=== PATIENT | male | born 1950 | race Hispanic/Latino ===

== ENCOUNTER → 2017-03-24 | Outpatient (CLI) | payer MEDICARE, MEDICAID ==
--- NOTE | 2017-03-24 16:38 | Diagnostic Imaging Report ---
PROCEDURE: US Carotid Duplex Bilateral. TECHNIQUE: Multiple real-time grayscale images were obtained over the carotid arteries in various projections bilaterally. Additional duplex Doppler and color Doppler images were also obtained. INDICATION: History of stroke. FINDINGS: Grayscale images demonstrate minimal plaque along the carotid arteries. Color Doppler demonstrates patency of the common, internal, and external carotid arteries on both sides. There is antegrade flow seen in the vertebral arteries bilaterally. The peak systolic velocities in the right ICA are 37, 36, and 58 cm/s and, on the left, are 58, 78, and 83 cm/s. The ICA/CCA ratio is up to 0.5 on the right and on the left up to 0.8. IMPRESSION: The estimated underlying stenosis is in the range of 0-40% bilaterally. Dictated by: Dictated on workstation # [id number]
== END ==
LOC: RAD 14:46
PROVIDERS: ATTEND Internal Medicine Cardiovascular Disease
DX: I65.23 Occlusion and stenosis of bilateral carotid arteries (principal); I25.10 Atherosclerotic heart disease of native coronary artery without angina pectoris
CPT/HCPCS: 93880

== ENCOUNTER 2021-01-10 09:33 | Outpatient (RCR) | payer MEDICARE, MEDICAID | END 2021-04-10 | disposition home or self-care (01) | LOC: CARD 09:33 | PROVIDERS: ATTEND Internal Medicine Cardiovascular Disease | DX: R00.2 Palpitations (principal); I63.9 Cerebral infarction, unspecified; E78.5 Hyperlipidemia, unspecified; E11.9 Type 2 diabetes mellitus without complications | CPT/HCPCS: 93225; 93226; 93306 ==

== ENCOUNTER → 2021-09-08 | Outpatient (CLI) | payer MEDICARE, MEDICAID | END | disposition home or self-care (01) | LOC: PREOP 05:46 | PROVIDERS: ATTEND Surgery | DX: Z01.818 Encounter for other preprocedural examination (principal) ==

== ENCOUNTER → 2021-09-16 | Outpatient (CLI) | payer MEDICARE, MEDICAID ==
--- NOTE | 2021-09-16 13:15 | Diagnostic Imaging Report ---
INDICATION: 70-year-old male with osteoporosis. COMPARISON: None. FINDINGS: AP Spine L1-L4: [BMD (g/cm2): 0.957] [T-Score: -2.4] [Z-Score: -2.0] [BMD Previous: NA] [BMD % Change: NA] LT Hip Neck: [BMD (g/cm2): 0.807] [T-Score: -2.0] [Z-Score: -1.0] LT Hip Total: [BMD (g/cm2):0.818] [T-Score:-2.0] [Z-Score: -1.4] [BMD Previous: NA] [BMD % Change: NA] RT Hip Neck: [BMD (g/cm2):0.746] [T-Score:-2.5] [Z-Score:-1.4] RT Hip Total: [BMD (g/cm2):0.847] [T-score:-1.8] [Z-Score:-1.2] [BMD Previous:NA] [BMD % Change:NA] World Health Organization criteria for BMD interpretation classify patients as Normal (T-score at or above -1.0), Osteopenic (T-score between -1.0 and -2.5) or Osteoporotic (T-score at or below -2.5). LIMITATIONS AND MODIFICATION: None. IMPRESSION: 1. Osteoporosis. 2. Baseline examination. 3. See below National Osteoporosis Foundation guidelines on when to potentially initiate pharmacologic therapy. Based on the National Osteoporosis Foundation Guidelines, pharmacologic treatment should be initiated in any of the following, unless clinical conditions suggest otherwise: * Any patient with prior fragility fracture of the hip or vertebrae. A spine fracture indicates 5X risk for subsequent spine fracture and 2X risk for subsequent hip fracture. * Osteoporosis (T-score <-2.5). * Postmenopausal women and men age 50 and older with low bone mass/osteopenia (T-score between -1.0 and -2.5) by DXA and 10-year major osteoporotic fracture greater than 20% or a 10-year probability of hip fracture greater than 3%. These fracture risks are supplied above in the FRAX score, if applicable. * Clinician judgement and/or patient preferences may indicate treatment for people with 10-year fracture probabilities above or below these levels. Dictated by: Dictated on workstation # [id number]
== END ==
LOC: RAD 10:07
PROVIDERS: ATTEND Family Medicine
DX: M81.0 Age-related osteoporosis without current pathological fracture (principal)
CPT/HCPCS: 77080

== ENCOUNTER → 2022-11-25 | Outpatient (CLI) | payer MEDICARE, MEDICAID ==
[~2022-11-25] MED LIST: CATHETER FLUSH 10 ML SYR IVP PRN; REGADENOSON 0.4 MG/5 ML SYR (LEXISCAN) IV ONE
[2022-11-25 08:54] VITALS: BP 126/79
[2022-11-25 09:05] VITALS: BP 105/69
--- NOTE | 2022-11-25 11:47 | Cardiology Stress Test Report ---
Stress Test Report Date of Procedure/Referring: Date of Procedure: Nov 25, 2022 PCP Ellie Larose DO Admitting Physician Admitting Physician: Attending Physician: Ron Moreau MD Baseline Heart Rate: 62 Baseline Blood Pressure: Blood Pressure Systolic: 105 Blood Pressure Diastolic: 69 Baseline Vitals Vital Signs Date Time Temp Pulse Resp B/P (MAP) Pulse Ox O2 Delivery O2 Flow Rate FiO2 11/25/22 08:54 62 126/79 (95) 97 Room Air Baseline EKG: Baseline EKG: NSR Summary After explaining the procedure to the patient, he signed a consent and then brought to the stress nuclear laboratory. Patient received 0.4 mg Lexiscan for stress test, ECG, heart rate and blood pressure were monitored continuously. Resting and stress dose of radio tracer were injected, imaging was acquired and reviewed in short axis, horizontal long axis and vertical long axis views. TID: 1.09 SSS: 6 SDS: 5 EF: 85 1. Patient tolerated Lexiscan well 2. Extracardiac attenuation with the left arm down during acquisition of the imaging. There is a reversible ischemia involving the apex, inferoapical and inferolateral wall. 3. Normal left ventricular size, ejection fraction 85% Copy Copies To 1: [facility] [place] RON MOREAU MD Nov 25, 2022 11:47
== END ==
LOC: CARD 07:30
PROVIDERS: ATTEND Internal Medicine Cardiovascular Disease
DX: R07.2 Precordial pain (principal)
CPT/HCPCS: 78452; 93017; A9502; C8929; 93306

== ENCOUNTER 2023-01-13 06:57 | Day surgery (SDC) | payer MEDICARE, MEDICAID ==
[2023-01-13] VITALS (10 sets, daily range): BP systolic 96–150; BP diastolic 66–97
[~2023-01-13] VITALS: Ht 172.7 cm; Wt 83.1 kg
[2023-01-13] MEDS ORDERED: NS IV 1000 ML 1,000 ML IV SCH ×2 (07:00→09:30)
[2023-01-13] MEDS ORDERED: HEParin (CATH LAB) 2,000 ML IV ONE (07:02)
[2023-01-13] MEDS ORDERED: NS IV 1000 ML 1,000 ML ONE (07:02)
[2023-01-13] MEDS ORDERED: LIDOCAINE 1% INJ 20 ML VIAL ONE (07:02)
[2023-01-13 07:34] LABS: HEMATOCRIT 45 % (40-54); HEMOGLOBIN 15.1 g/dL (13.3-17.7); MEAN CORPUSCULAR HEMOGLOBIN 28 pg (25-34); MEAN CORPUSCULAR HGB CONC 34 g/dL (32-36); MEAN CORPUSCULAR VOLUME 83 fL (80-99); PLATELET COUNT 374 10^3/uL (130-400); WHITE BLOOD COUNT 6.8 10^3/uL (4.3-11.0)
[2023-01-13] MEDS ORDERED: VERAPAMIL 5 MG/2 ML (CALAN) VIAL IV ONE (07:46)
[2023-01-13] MEDS ORDERED: MIDAZOLAM 5 MG/5 ML (VERSED) VIAL ONE (07:47)
[2023-01-13] MEDS ORDERED: fentaNYL INJ 100 MCG/2 ML AMP ONE (07:47)
[2023-01-13] MEDS ORDERED: HEParin 1000 UNIT/ML (10ML VIAL) FOR BOLUS ONE (07:47)
[2023-01-13] MEDS ORDERED: NITRO DRIP 25000 MCG/D5W 250 ML IV ONE (07:47)
[2023-01-13 07:56] LABS: INR 0.9 (0.8-1.4); PROTHROMBIN TIME PATIENT 12.2 SEC (12.2-14.7)
[2023-01-13] MEDS ORDERED: POTA-177 PO (08:12)
[2023-01-13] MEDS ORDERED: CLOP75TA28 PO (08:12)
[2023-01-13] MEDS ORDERED: METF-399 PO ×2 (08:12→09:23)
[2023-01-13] MEDS ORDERED: TMSL.4C PO (08:12)
[2023-01-13] MEDS ORDERED: DICL75TA2 PO (08:12)
[2023-01-13] MEDS ORDERED: DULO30CA49 PO (08:12)
[2023-01-13] MEDS ORDERED: ATOR10TA66 PO (08:12)
[2023-01-13] MEDS ORDERED: GABA300C PO (08:12)
[2023-01-13] MEDS ORDERED: ASPI-1238 PO (08:12)
--- NOTE | 2023-01-13 08:13 | Diagnostic Imaging Report ---
EXAMINATION: Chest 1 view HISTORY: ABN STRESS TEST COMPARISON: None available. FINDINGS: Heart size is upper limits of normal. There are low lung volumes without consolidation, pleural effusion, or pneumothorax. Degenerative changes of the thoracic spine. Osseous structures are otherwise intact. IMPRESSION: 1. No acute radiographic abnormality in the chest. Dictated by: Dictated on workstation # [id number]
[2023-01-13] MEDS ORDERED: GBPN600T PO (08:22)
--- NOTE | 2023-01-13 08:47 | Cardiac Procedure Note-CS/ASA ---
Pre-Procedure Note Pre-Op Procedure Note Date of Available H&P: Jan 13, 2023 Date H&P Reviewed: Jan 13, 2023 Time H&P Reviewed: 08:46 History & Physical: H&P Reviewed, Patient Examed, No changes noted Pre-Operative Diagnosis: CAD Conscious Sedation Pre-Proced Time 08:46 ASA Score 3 For ASA 3 and 4: Consider anesthesia and medical clearance. Also, for patients with a history of failed moderate sedation consider anesthesia. Airway Lungs Heart ASA score ASA 1: a normal healthy patient ASA 2: a patient with a mild systemic disease (mid diabetes, controlled hypertension, obesity ASA 3: a patient with a severe systemic disease that limits activity (angina, COPD, prior Myocardial infarction) ASA 4: a patient with an incapacitating disease that is a constant threat to life (CHF, renal failure) ASA 5: a moribund patient not expected to survive 24 hrs. (ruptured aneurysm) ASA 6: a declared brain- patient whose organs are being harvested. For emergent operations, add the letter E after the classification Mallampati Classification Grade 3 Sedation Plan Analgesia, Amnesia, Plan communicated to team members, Discussed options with patient/fam, Discussed risks with patient/fam The patient is an appropriate candidate to undergo the planned procedure, sedation, and anesthesia. The patient immediately re-assessed prior to indication. RON ROCHA MD Jan 13, 2023 08:47
[2023-01-13 09:08] LABS: ALBUMIN 4.1 GM/DL (3.2-4.5); BILIRUBIN,TOTAL 0.3 MG/DL (0.1-1.0); CALCIUM 9.8 MG/DL (8.5-10.1); CREATININE SERUM 0.75 MG/DL (0.60-1.30); POTASSIUM 3.7 MMOL/L (3.6-5.0); TOTAL PROTEIN 7.6 GM/DL (6.4-8.2)
--- NOTE | 2023-01-13 09:23 | Discharge Inst-Post CATH ---
Discharge Inst-CATH/EP Problems Reviewed?: Yes Post Cardiac Cath/EP D/C Inst Follow Up/Plan Hold metformin for [address] Moreau's office in 2 to 4 weeks <b>CARDIAC CATH/EP PROCEDURE DISCHARGE INSTRUCTIONS</b> ACTIVITY * Go Home directly and rest. * Limit activity of the leg (or wrist if it was used) for 7 days including aerobics, swimming, jogging, bicycling, etc. * Restrict stair-climbing for 7 days if possible, if not, climb up with your non-cath leg, then bring together on the same step. * Avoid lifting, pushing, pulling or excessive movement of the affected extremity for 7 days. * Customary sexual activity may be resumed after 2 days-use caution not to use a position that strains or causes pain to the affected extremity. * No driving for 24 hours. * NO SMOKING. * Avoid straining for bowel movements for 7 days. * Gentle walking on level ground is allowed. * Returning to work will depend on the type of procedure and the results. Your doctor will discuss this with you. CALL YOUR DOCTOR FOR ANY OF THE FOLLOWING: *If bleeding from the puncture site occurs- Apply gentle pressure to site with clean cloth and call your doctor or EMS. * If a knot or lump forms under the skin, increases in size, or causes pain. * If bruising appears to be worsening or moving further down your leg instead of disappearing. * Temperature above 101 F. CARE OF YOUR GROIN INCISION; * Bruising or purple discoloration of the skin near the puncture site is common. * You may shower only, no bathtub bathing for 5 days. Be careful to avoid slipping as your leg may feel stiff. * If a closure device was used on your femoral artery, please see the attached guide regarding care of the device and your leg. * Leave dressing on FOR 24 hours. CARE OF YOUR WRIST INCISION; * Bruising or purple discoloration of the skin near the puncture site is common. * You may shower. * DO NOT submerge wrist. * Leave dressing on FOR 24 hours. RON MOREAU MD Jan 13, 2023 09:23
--- NOTE | 2023-01-13 09:27 | Cardiac Cath Report ---
Cardiac Cath Report Physician (s)/Air Tube Releaser (s) Physician RON ROCHA MD Pre-Procedure Diagnosis Pre-Procedure Diagnosis: CAD Post-Procedure Note Procedure Start Date: Jan 13, 2023 Name of Procedure: Coronary angiogram Aortic arch angiogram Findings/Procedure Note PROCEDURE NOTE: 72 years old gentleman with history of coronary artery disease, diabetes mellitus, hypertension hyperlipidemia, had an abnormal stress test, scheduled for cardiac catheterization possible PTCA. After explaining the procedure to the patient, all pros and cons were explained, all questions were answered. The patient signed the consent and then he was placed in the cardiac catheterization laboratory. Groin was prepped in SL fashion local anesthesia was used. Sheath placed in the right radial artery, [place] catheter was used, I had significant difficulty in reaching the aortic arch due to the tortuosity and calcification in the aortic arch. I was unable to cross the aortic valve. Engaged the right and left coronary system, angiogram was done then I exchanged the catheter and used Ya right catheter and engaged the right coronary artery did angiogram again then I pulled the catheter back to the aortic arch and evaluated aortic arch angiogram. At the end of the procedure the sheath was removed. Vascular band was used FINDINGS: Hemodynamics LV did not cross the aortic valve Aorta 107/66 mean of 83 ANATOMY: Left Main is free of obstructive disease Left Anterior Descending has mild disease nonobstructive disease Left Circumflex has mild disease nonobstructive disease, large dominant artery Right Coronary Artery is nondominant artery with patent stent proximally, had 70 to 80% in-stent restenosis, proximally there is significant tortuosity with 90% stenosis, the artery is too small and nondominant artery LV Gram did not cross the aortic valve Aorta evaluation done with aortic arch angiogram showed calcification in the aortic arch, no dissection or aneurysm, normal origin of the brachiocephalic artery, left carotid and left subclavian arteries CONCLUSION: Small nondominant right coronary artery with patent stent proximally with 70 to 80% in-stent restenosis proximal to the stent there is significant tortuosity with 90% stenosis, not amendable to intervention the artery is small nondominant artery Large dominant circumflex artery, nonobstructive disease in the left coronary system Calcified aortic arch with hypertensive changes no dissection or aneurysm DISCUSSION AND RECOMMENDATION: Continue to maximize medical therapy Anesthesia Type: Conscious Sedation Estimated blood loss (mL): 20 ml Contrast Amount: 68 ml Total Radiation Dose: 385 mGy Post-Procedure Diagnosis Post-operative diagnosis: Coronary artery disease Hypertension Hyperlipidemia Diabetes mellitus RON ROCHA MD Jan 13, 2023 09:27
== END 2023-01-13 12:30 ==
LOC: CATH 06:57 → SDC 09:36 → CATH 12:30
PROVIDERS: ATTEND Internal Medicine Cardiovascular Disease
DX: I25.10 Atherosclerotic heart disease of native coronary artery without angina pectoris (principal); I10 Essential (primary) hypertension; E78.5 Hyperlipidemia, unspecified; E11.9 Type 2 diabetes mellitus without complications; I65.23 Occlusion and stenosis of bilateral carotid arteries; Z79.82 Long term (current) use of aspirin; Z79.02 Long term (current) use of antithrombotics/antiplatelets; Z86.73 Personal history of transient ischemic attack (TIA), and cerebral infarction without residual deficits; Z79.84 Long term (current) use of oral hypoglycemic drugs
CPT/HCPCS: 36221; 36415; 71045; 80053; 80061; 85027; 85610; 85730; 87081; 93005; 93454